=== PATIENT | female | born 1930 | race Caucasian/White ===

== ENCOUNTER 2017-12-03 10:14 | Emergency (ER) | payer MEDICARE ==
[~2017-12-03] VITALS: Ht 165.1 cm; Wt 63.5 kg
[~2017-12-03 10:14] MED LIST: ATEN25; ATOR40TA; Antivert25 MG PO; CLAR250; GLIM4 PO; HYDR1TAB94 PO; METO25ER PO; NITR.4SL SL; PIOG15; Percocet 5-3251 EACH PO; SPIR50
[2017-12-03] MEDS ORDERED: Naprosyn500 MG PO (11:40)
== END 2017-12-03 11:49 | disposition home or self-care (01) ==
LOC: ER 10:14
DX: M16.0 Bilateral primary osteoarthritis of hip (principal); E11.9 Type 2 diabetes mellitus without complications; I10 Essential (primary) hypertension; E78.00 Pure hypercholesterolemia, unspecified; Z88.0 Allergy status to penicillin; Z91.030 Bee allergy status; Z88.8 Allergy status to other drugs, medicaments and biological substances; Z79.899 Other long term (current) drug therapy; X50.1XXA Overexertion from prolonged static or awkward postures, initial encounter
CPT/HCPCS: 73502; 96372; 99283; J1885

== ENCOUNTER 2021-07-29 08:15 | Day surgery (SDC) | payer MEDICARE ==
[~2021-07-29] VITALS: Ht 165.1 cm; Wt 58.4 kg
[~2021-07-29 08:15] MED LIST changes: +Naprosyn500 MG PO
[2021-07-29] MEDS ORDERED: INSULANI SC (09:07)
[2021-07-29] MEDS ORDERED: Aspirin325 MG PO (09:11)
[2021-07-29] MEDS ORDERED: METF500 PO (09:12)
[2021-07-29] MEDS ORDERED: LOSARTAN POTASS25 M2 PO (09:12)
[2021-07-29] MEDS ORDERED: ROSU5 PO (09:15)
--- NOTE | 2021-07-29 10:25 | NUR ---
07/29/21 1025 Avani Maldonado RN SPOKE WITH CHARGE NURSE UBALDO REGARDING PATIENT LIVING ALONE, HAS NEIGHBORS THAT WILL CHECK ON HER. INFORMED NEIGHBORS TO CALL APS REGARDING HOME CONDITIONS.
== END 2021-07-29 10:23 | disposition home or self-care (01) ==
LOC: ORSCSDS 08:15
PROVIDERS: Ophthalmology
PROC: 08RJ3JZ Replacement of Right Lens with Synthetic Substitute, Percutaneous Approach (ICD-10-PCS; principal; 2021-07-29 09:30)
DX: H25.11 Age-related nuclear cataract, right eye (principal); I25.10 Atherosclerotic heart disease of native coronary artery without angina pectoris; I10 Essential (primary) hypertension; E78.5 Hyperlipidemia, unspecified; I25.2 Old myocardial infarction; E11.9 Type 2 diabetes mellitus without complications; Z79.82 Long term (current) use of aspirin; Z79.84 Long term (current) use of oral hypoglycemic drugs; Z79.899 Other long term (current) drug therapy
CPT/HCPCS: 82947; A9270; J2001; J2250; J3010; J3301; J7040; V2632

== ENCOUNTER 2021-09-23 06:18 | Day surgery (SDC) | payer MEDICARE ==
[~2021-09-23] VITALS: Ht 167.6 cm; Wt 56.1 kg
[~2021-09-23 06:18] MED LIST changes: +Aspirin325 MG PO; +INSULANI SC; +LOSARTAN POTASS25 M2 PO; +METF500 PO; +ROSU5 PO
--- NOTE | 2021-09-23 06:58 | NUR ---
09/23/21 0658 Lyubov Cruz [id number]
--- NOTE | 2021-09-23 08:40 | NUR ---
09/23/21 0840 ALFONZO LAZARO FRIEND LISTENED TO DC INSTRUCTIONS TO HELP PT DUE TO HEARING LOSS. PT REPEATED DC INSTRUCTIONS BACK TO ME WITH UNDERSTANDING
== END 2021-09-23 08:14 | disposition home or self-care (01) ==
LOC: ORSCSDS 06:18
PROVIDERS: Ophthalmology
PROC: 08RK3JZ Replacement of Left Lens with Synthetic Substitute, Percutaneous Approach (ICD-10-PCS; principal; 2021-09-23 07:30)
DX: H25.12 Age-related nuclear cataract, left eye (principal); I10 Essential (primary) hypertension; I25.10 Atherosclerotic heart disease of native coronary artery without angina pectoris; E11.9 Type 2 diabetes mellitus without complications; Z86.73 Personal history of transient ischemic attack (TIA), and cerebral infarction without residual deficits; Z79.82 Long term (current) use of aspirin; Z79.84 Long term (current) use of oral hypoglycemic drugs; Z79.899 Other long term (current) drug therapy
CPT/HCPCS: 82947; A9270; J2001; J2250; J3010; J3301; J7040; V2632

== ENCOUNTER → 2021-10-14 | Outpatient (CLI) | payer MEDICARE | END | disposition home or self-care (01) | LOC: LAB SHORT 13:15 → LAB 13:15 | DX: E11.59 Type 2 diabetes mellitus with other circulatory complications (principal) | CPT/HCPCS: 83036 ==